=== PATIENT | female | born 1970 | race African-American/Black ===

== ENCOUNTER 2016-12-26 17:03 | Emergency (ER) | payer MEDICAID ==
[~2016-12-26] VITALS: Ht 162.6 cm; Wt 59.0 kg
[2016-12-26] MEDS ORDERED: PREDNISONE 20MG TABLET PO ONE (18:15)
[2016-12-26] MEDS ORDERED: FAMOTIDINE 20MG TABLET PO ONE (18:15)
[2016-12-26 19:02] VITALS: BP 144/87
== END 2016-12-26 19:07 | disposition home or self-care (01) ==
LOC: ER 17:04
DX: L30.9 Dermatitis, unspecified (principal); I10 Essential (primary) hypertension; F17.200 Nicotine dependence, unspecified, uncomplicated; T78.3XXA Angioneurotic edema, initial encounter
CPT/HCPCS: 99283; J7512; Z7610

== ENCOUNTER 2018-12-01 10:25 | Emergency (ER) | payer MEDICAID ==
[~2018-12-01] VITALS: Ht 165.1 cm; Wt 64.5 kg
[2018-12-01 15:56] VITALS: BP 157/89
== END 2018-12-01 15:57 | disposition home or self-care (01) ==
LOC: ER 10:46
DX: A46 Erysipelas (principal); I10 Essential (primary) hypertension
CPT/HCPCS: 99283